=== PATIENT | female | born 1960 | race Caucasian/White ===

== ENCOUNTER → 2017-10-12 | Outpatient (CLI) | payer OTHER ==
[~2017-10-12] MED LIST: BENICAR HCT 12.1 TA4 PO; CALCIUM 500 + D1 TAB PO; CLARITIN10 MG PO; LIPITOR20 MG PO; NEXIUM20 MG PO; TOPROL XL50 MG PO
[2017-10-12 08:42] LABS: BASO # 0.1 10*3/uL (0.0-0.1); BASO % 0.5 % (0.0-1.0); EOS # 0.2 10*3/uL (0.0-0.4); EOS % 1.6 % (1.0-4.0); HEMATOCRIT 45.2 % (37.0-47.0); HEMOGLOBIN 15.1 g/dl (12.0-16.0); LYMPH # 3.2 10*3/uL (1.3-4.4); LYMPH % 33.8 % (27.0-41.0); MEAN CELL VOLUME 85.9 fl (81.0-99.0); MEAN CORPUSCULAR HGB 28.7 pg (27.0-31.0); MEAN CORPUSCULAR HGB CONC 33.4 g/dl (33.0-37.0); MEAN PLATELET VOLUME 9.5 fl (9.6-12.3); MONO # 0.5 10*3/uL (0.1-1.0); MONO % 5.3 % (3.0-9.0); NEUT # 5.5 10*3/uL (2.3-7.9); NEUT % 58.5 % (47.0-73.0); PLATELET COUNT AUTOMATED 256 10*3/uL (130-400); RED BLOOD COUNT 5.26 10*6/uL (4.10-5.10); RED CELL DISTRI WIDTH 13.7 % (0-14.5); WHITE BLOOD COUNT 9.4 10*3/uL (4.8-10.8)
[2017-10-12 08:56] LABS: ALBUMIN 3.5 gm/dl (3.1-4.5); ALKALINE PHOSPHATASE 99 U/L (45-117); BUN 13 mg/dl (7-24); CHLORIDE 106 mmol/L (98-107); CHOLESTEROL 215 mg/dL (<200); CREATININE 0.82 mg/dL (0.55-1.02); HDL CHOLESTEROL 27 mg/dl (40-60); LDL CHOLESTEROL 143 mg/dL (9-159); POTASSIUM 3.7 mmol/L (3.5-5.1); SGOT/AST 17 IU/L (3-35); SGPT/ALT 29 U/L (12-78); SODIUM 137 mmol/L (136-145); TOTAL PROTEIN 7.6 gm/dL (6.4-8.2); TRIGLYCERIDES 227 mg/dl (<150); VLDL CHOLESTEROL 45 mg/dL (6-40)
== END | disposition home or self-care (01) ==
LOC: LAB 07:57
PROVIDERS: Internal Medicine
DX: I25.10 Atherosclerotic heart disease of native coronary artery without angina pectoris (principal); E11.9 Type 2 diabetes mellitus without complications

== ENCOUNTER → 2018-08-16 | Outpatient (CLI) | payer OTHER ==
[~2018-08-16] MED LIST changes: +ASPIRIN CHEWABL81 MG PO; +CETIRIZINE HYDR10 MG PO; +IMDUR SA30 MG PO; +LOSARTAN-HCTZ1 EAC2 PO; +METFORMIN HYDR500 MG PO; +METOPROLOL SUCC50 M1 PO; +OSTERA TABLET1 EACH PO; +OYSTER SHELL C1 EAC3 PO; +PANTOPRAZOLE SO40 MG PO
== END | disposition home or self-care (01) ==
LOC: MAMMO 12:56
DX: Z85.3 Personal history of malignant neoplasm of breast (principal)

== ENCOUNTER 2018-08-23 10:13 | Emergency (ER) | payer OTHER ==
[~2018-08-23] VITALS: Ht 162.5 cm; Wt 88.5 kg
--- NOTE | ~2018-08-23 | EKG ---
[place], [place] ELECTROCARDIOGRAM REPORT NAME: ANDREI AGUIAR UNIT #: [id number] ROOM: DOCTOR: EPIPHANY DRAFT REPORT BIRTHDATE: [birth year] [facility] Test Date: 2018-08-23 Test Time: 10:15:44 Pat Name: ANDREI AGUIAR Department: Room: Gender: F Nursing Home Aide: Nidia Parsons : 1960 Requested By: MONTANA HOPPER Order Number: [id number] Reading MD: Ady Kaiser MD Measurements Intervals [place] Rate: 80 P: 56 VT: 144 QRS: 69 QRSD: 83 T: 60 QT: 361 QTc: 417 Interpretive Statements Sinus rhythm Inferoposterior infarct, acute (LCx) Lateral infarct, acute ST depression V1-V3, suggest recording posterior leads Acute inferior-lateral infarction with posterior extension (STEMI) Electronically Signed On 08-23-2018 16:03:56 PST by Ady Kaiser MD CM:EKGRPT:ELECTROCARDIOGRAM REPORT [id number] MONTANA GIBSON DRAFT REPORT MONTANA HOPPER M.D.
[~2018-08-23 10:13] MED LIST changes: -ASPIRIN CHEWABL81 MG PO; -CETIRIZINE HYDR10 MG PO; -IMDUR SA30 MG PO; -LOSARTAN-HCTZ1 EAC2 PO; -METFORMIN HYDR500 MG PO; -METOPROLOL SUCC50 M1 PO; -OSTERA TABLET1 EACH PO; -OYSTER SHELL C1 EAC3 PO; -PANTOPRAZOLE SO40 MG PO
[2018-08-23 10:28] LABS: BASO # 0.1 10*3/uL (0.0-0.1); BASO % 0.5 % (0.0-1.0); EOS # 0.2 10*3/uL (0.0-0.4); HEMATOCRIT 53.4 % (37.0-47.0); HEMOGLOBIN 17.3 g/dl (12.0-16.0); LYMPH # 3.4 10*3/uL (1.3-4.4); LYMPH % 29.6 % (27.0-41.0); MEAN CELL VOLUME 90.4 fl (81.0-99.0); MEAN CORPUSCULAR HGB 29.3 pg (27.0-31.0); MEAN CORPUSCULAR HGB CONC 32.4 g/dl (33.0-37.0); MEAN PLATELET VOLUME 9.5 fl (9.6-12.3); MONO # 0.6 10*3/uL (0.1-1.0); MONO % 5.2 % (3.0-9.0); NEUT # 7.1 10*3/uL (2.3-7.9); NEUT % 62.3 % (47.0-73.0); PLATELET COUNT AUTOMATED 272 10*3/uL (130-400); RED BLOOD COUNT 5.91 10*6/uL (4.10-5.10); RED CELL DISTRI WIDTH 13.6 % (0-14.5); WHITE BLOOD COUNT 11.4 10*3/uL (4.8-10.8)
[2018-08-23] MEDS ORDERED: IMDUR SA30 MG PO (10:28)
[2018-08-23] MEDS ORDERED: METOPROLOL SUCC50 M1 PO (10:28)
[2018-08-23] MEDS ORDERED: PANTOPRAZOLE SO40 MG PO (10:29)
[2018-08-23] MEDS ORDERED: CETIRIZINE HYDR10 MG PO (10:29)
[2018-08-23] MEDS ORDERED: LOSARTAN-HCTZ1 EAC2 PO (10:29)
[2018-08-23] MEDS ORDERED: METFORMIN HYDR500 MG PO (10:30)
[2018-08-23] MEDS ORDERED: OSTERA TABLET1 EACH PO (10:31)
[2018-08-23] MEDS ORDERED: ASPIRIN CHEWABL81 MG PO (10:32)
[2018-08-23] MEDS ORDERED: OYSTER SHELL C1 EAC3 PO (10:32)
[2018-08-23 10:38] LABS: ACT PARTIAL THROMBO TIME 25.8 SECONDS (20.8-31.5); INTERNATIONAL NORM RATIO 0.9 (2.0-3.5)
[2018-08-23 10:44] LABS: ALBUMIN 4.1 gm/dl (3.1-4.5); ALKALINE PHOSPHATASE 110 U/L (45-117); BUN 14 mg/dl (7-24); CHLORIDE 103 mmol/L (98-107); CREATININE 1.06 mg/dL (0.55-1.02); POTASSIUM 3.3 mmol/L (3.5-5.1); SGOT/AST 16 IU/L (3-35); SGPT/ALT 26 U/L (12-78); SODIUM 137 mmol/L (136-145); TOTAL PROTEIN 8.7 gm/dL (6.4-8.2)
[2018-08-23 10:46] LABS: TROPONIN I 0.329 ng/ml (<0.045)
[2018-08-23 10:50] VITALS: BP 136/60
== END 2018-08-23 10:52 | disposition short-term general hospital (02) ==
LOC: ED 10:13
PROVIDERS: Emergency Medicine
DX: I21.19 ST elevation (STEMI) myocardial infarction involving other coronary artery of inferior wall (principal); I25.2 Old myocardial infarction; Z79.899 Other long term (current) drug therapy; Z79.82 Long term (current) use of aspirin

== ENCOUNTER → 2022-02-04 | Outpatient (CLI) | payer BC ==
[~2022-02-04] MED LIST changes: +ASPIRIN CHEWABL81 MG PO; +CETIRIZINE HYDR10 MG PO; +IMDUR SA30 MG PO; +LOSARTAN-HCTZ1 EAC2 PO; +METFORMIN HYDR500 MG PO; +METOPROLOL SUCC50 M1 PO; +OSTERA TABLET1 EACH PO; +OYSTER SHELL C1 EAC3 PO; +PANTOPRAZOLE SO40 MG PO
== END | disposition home or self-care (01) ==
LOC: COVID19 10:19
PROVIDERS: ATTEND Internal Medicine
DX: U07.1 COVID-19 (principal)

== ENCOUNTER → 2022-04-03 | Outpatient (CLI) | payer BC | END | disposition home or self-care (01) | LOC: RAD 14:01 | PROVIDERS: ATTEND Internal Medicine | DX: M48.02 Spinal stenosis, cervical region (principal); M54.12 Radiculopathy, cervical region ==

== ENCOUNTER 2022-06-15 16:32 | Emergency (ER) | payer BC | END 2022-06-15 17:38 | disposition left against medical advice (07) | LOC: ED 16:32 | DX: Z00.8 Encounter for other general examination (principal); Z53.21 Procedure and treatment not carried out due to patient leaving prior to being seen by health care provider ==

== ENCOUNTER → 2022-10-01 | Outpatient (CLI) | payer BC | END | disposition home or self-care (01) | LOC: MAMMO 13:00 | PROVIDERS: ATTEND Internal Medicine | DX: C50.919 Malignant neoplasm of unspecified site of unspecified female breast (principal); R92.1 Mammographic calcification found on diagnostic imaging of breast ==

== ENCOUNTER → 2023-11-18 | Outpatient (CLI) | payer BC | END | disposition home or self-care (01) | LOC: CARD 11-10 08:30 | PROVIDERS: ATTEND Internal Medicine Cardiovascular Disease | DX: I21.4 Non-ST elevation (NSTEMI) myocardial infarction (principal); R06.09 Other forms of dyspnea ==

== ENCOUNTER → 2023-11-25 | Outpatient (CLI) | payer BC | END | disposition home or self-care (01) | LOC: MAMMO 00:12 | PROVIDERS: ATTEND Internal Medicine | DX: R92.8 Other abnormal and inconclusive findings on diagnostic imaging of breast (principal); Z85.3 Personal history of malignant neoplasm of breast ==

== ENCOUNTER → 2024-11-27 | Outpatient (CLI) | payer OTHER ==
[2024-11-28 05:06] LABS: HBsAG SCREEN Negative (Negative); HCV Ab Non Reactive (Non Reactive); HEP B CORE Ab, IgM Negative (Negative)
== END | disposition home or self-care (01) ==
LOC: MAMMO 11-20 08:00 → US 11-20 08:30 → LAB 07:47 → MAMMO 08:00
PROVIDERS: ATTEND Internal Medicine
DX: Z12.31 Encounter for screening mammogram for malignant neoplasm of breast (principal); R74.8 Abnormal levels of other serum enzymes; K76.0 Fatty (change of) liver, not elsewhere classified; Z90.49 Acquired absence of other specified parts of digestive tract